=== PATIENT | male | born 1980 | race African-American/Black ===

== ENCOUNTER 2018-02-08 08:52 | Emergency (ER) | payer OTHER ==
[2018-02-08 09:00] VITALS: BP 136/99
--- NOTE | 2018-02-08 09:17 | PHYS DOC ---
Adult General Chief Complaint Chief Complaint: ANIMAL BITE HPI HPI 37-year-old male presents with dog bite. Patient was walking home from a gas station around 2:30 AM when he heard a noise behind him. He turned around and the dog appeared from the bushes and lunged at the patient. He put his hands up to protect himself and the dog bit his right hand at least twice. He was able to push the dog away with his foot and the dog left and went across the street. He did notice that the dog had a collar, but could not see any tags. The patient then went home and peroxide over the wounds and wrapped loosely with a towel. He came in today to have it evaluated. He denies fever or chills. He states that other than biting him, the dog appeared to be acting normally. He has no other injuries or wounds. His tetanus is not up-to-date. Review of Systems Review of Systems Constitutional: Denies fever or chills [] Eyes: Denies change in visual acuity, redness, or eye pain [] HENT: Denies nasal congestion or sore throat [] Respiratory: Denies cough or shortness of breath [] Cardiovascular: No additional information not addressed in HPI [] GI: Denies abdominal pain, nausea, vomiting, bloody stools or diarrhea [] : Denies dysuria or hematuria [] Musculoskeletal: right hand pain [] Integument: puncture wounds on right hand [] Neurologic: Denies headache, focal weakness or sensory changes [] Endocrine: Denies polyuria or polydipsia [] All other systems were reviewed and found to be within normal limits, except as documented in this note. Physical Exam Physical Exam Constitutional: Well developed, well nourished, no acute distress, non-toxic appearance. [] HENT: Normocephalic, atraumatic, bilateral external ears normal, oropharynx moist, no oral exudates, nose normal. [] Eyes: PERRLA, EOMI, conjunctiva normal, no discharge. [] Neck: Normal range of motion, no tenderness, supple, no stridor. [] Cardiovascular:Heart rate regular rhythm, no murmur [] Lungs & Thorax: Bilateral breath sounds clear to auscultation [] Abdomen: Bowel sounds normal, soft, no tenderness, no masses, no pulsatile masses. [] Skin: multiple puncture hazel on right hand. [] Back: No tenderness, no CVA tenderness. [] Extremities: slight swelling and multiple puncture wounds on right hand. [] Neurologic: Alert and oriented X 3, normal motor function, normal sensory function, no focal deficits noted. [] Psychologic: Affect normal, judgement normal, mood normal. [] EKG EKG [] Radiology/Procedures Radiology/Procedures HAND RIGHT 2V (PA, lateral) INDICATION: Right hand pain, dog bite today COMPARISON: None. FINDINGS: No acute fracture or malalignment. The joint spaces are maintained. Bony mineralization is normal for the patient's age. No significant soft tissue abnormality. No radiopaque foreign body. IMPRESSION: No acute fracture or malalignment. No radiopaque foreign body. Electronically signed by: Mandeep Merida MD (02/08/2018 9:28 AM) [facility][] Course & Med Decision Making Course & Med Decision Making Pertinent Labs and Imaging studies reviewed. (See chart for details) The patient's hand x-ray was negative for foreign body or fracture. Soaked the patient's wounds and a water chlorhexidine solution. I discussed rabies prophylaxis with the patient and he has elected not to proceed with that at this time. I will give him a prescription for Augmentin for the next 7 days. If he changes his mind about vaccination, he will return to the ED. He'll also return if his condition worsens. [] Dragon Disclaimer Dragon Disclaimer This electronic medical record was generated, in whole or in part, using a voice recognition dictation system. Departure Departure: Referrals: PCP,UNKNOWN (PCP) Scripts Amoxicillin/Potassium Clav (AUGMENTIN 875-125 TABLET) 1 Each Tablet 1 TAB PO BID, #14 TAB Prov: AMARILIS GAFFNEY DO 02/08/18 AMARILIS GAFFNEY DO February 08, 2018 09:17
--- NOTE | 2018-02-08 09:31 | RAD ---
HAND RIGHT 2V (PA, lateral) INDICATION: Right hand pain, dog bite today COMPARISON: None. FINDINGS: No acute fracture or malalignment. The joint spaces are maintained. Bony mineralization is normal for the patient's age. No significant soft tissue abnormality. No radiopaque foreign body. IMPRESSION: No acute fracture or malalignment. No radiopaque foreign body. Electronically signed by: Mandeep Merida MD (02/08/2018 9:28 AM) [facility]
[2018-02-08] MEDS ORDERED: AMOX1TAB61 PO (09:49)
[2018-02-08] MEDS ORDERED: DIPHTH,PERTUSS(ACELL),TET TOX 0.5 ML DISP.SYRIN. VAX IM ONE (10:00)
== END 2018-02-08 10:20 | disposition home or self-care (01) ==
LOC: ER 08:52
DX: S61.451A Open bite of right hand, initial encounter (principal); W54.0XXA Bitten by dog, initial encounter; Y93.01 Activity, walking, marching and hiking; Y99.8 Other external cause status; Y92.89 Other specified places as the place of occurrence of the external cause
CPT/HCPCS: 73120; 90471; 90715; 99284-25

== ENCOUNTER 2018-05-11 15:23 | Emergency (ER) | payer OTHER ==
[~2018-05-11] VITALS: Ht 177.8 cm; Wt 72.6 kg
[~2018-05-11 15:23] MED LIST: AMOX1TAB61 PO
[2018-05-11 15:51] VITALS: BP 159/101
--- NOTE | 2018-05-11 17:33 | PHYS DOC ---
Past History Past Medical History: Hypertension Past Surgical History: No Surgical History Alcohol Use: Occasionally Drug Use: Marijuana Adult General Chief Complaint Chief Complaint: SKIN PROBLEM HPI HPI 37-year-old male presents with a mass on the posterior right side of his scalp. Patient states that this appeared last week. It "popped" 2 days ago and had clear drainage. It is now scabbed over and the patient is concerned that it could be infected. He wants to know if there is anything he should do about it. He denies any other injuries or concerns. He denies fever or chills. No history of skin infections. Review of Systems Review of Systems Constitutional: Denies fever or chills [] Eyes: Denies change in visual acuity, redness, or eye pain [] HENT: Denies nasal congestion or sore throat [] Respiratory: Denies cough or shortness of breath [] Cardiovascular: No additional information not addressed in HPI [] GI: Denies abdominal pain, nausea, vomiting, bloody stools or diarrhea [] : Denies dysuria or hematuria [] Musculoskeletal: Denies back pain or joint pain [] Integument: skin lesions [] Neurologic: Denies headache, focal weakness or sensory changes [] Endocrine: Denies polyuria or polydipsia [] All other systems were reviewed and found to be within normal limits, except as documented in this note. Allergies Allergies Allergies Coded Allergies Type Severity Reaction Last Updated Verified No Known Drug Allergies 02/08/18 No Physical Exam Physical Exam Constitutional: Well developed, well nourished, no acute distress, non-toxic appearance. [] HENT: Normocephalic, atraumatic, bilateral external ears normal, oropharynx moist, no oral exudates, nose normal. [] Eyes: PERRLA, EOMI, conjunctiva normal, no discharge. [] Neck: Normal range of motion, no tenderness, supple, no stridor. [] Cardiovascular:Heart rate regular rhythm, no murmur [] Lungs & Thorax: Bilateral breath sounds clear to auscultation [] Abdomen: Bowel sounds normal, soft, no tenderness, no masses, no pulsatile masses. [] Skin: 1 cm lesion in the right occipital scalp along the hairline. It is scabbed over. There is no erythema or warmth. There is appears to be a ruptured cyst or some other inflammatory response. It appears to be healing well.[] Back: No tenderness, no CVA tenderness. [] Extremities: No tenderness, no cyanosis, no clubbing, ROM intact, no edema. [] Neurologic: Alert and oriented X 3, normal motor function, normal sensory function, no focal deficits noted. [] Psychologic: Affect normal, judgement normal, mood normal. [] Current Patient Data Vital Signs Vital Signs Date Time Temp Pulse Resp B/P (MAP) Pulse Ox O2 Delivery O2 Flow Rate FiO2 05/11/18 15:51 97.5 71 16 99 EKG EKG [] Radiology/Procedures Radiology/Procedures [] Course & Med Decision Making Course & Med Decision Making Pertinent Labs and Imaging studies reviewed. (See chart for details) The patient's mass appears to have been a local inflammatory reaction to a cyst , an insect bite or an ingrown hair. It seems to have spontaneously drained and is scabbed over. I do not see any signs of infection or other concerning signs. I explained to the patient that it just needs to heal on its own. If it returns he should seek further evaluation by his PCP. He is stable for discharge at this time. [] Dragon Disclaimer Dragon Disclaimer This electronic medical record was generated, in whole or in part, using a voice recognition dictation system. Departure Departure: Impression: Primary Impression: Scalp cyst Disposition: HOME, SELF-CARE Condition: STABLE Additional Instructions: The spot on your scalp was likely an infected hair follicle. It appears your body has taken care of the situation and it just needs to heal. You can bathe normally and have no restrictions for activities. Try not to take off the scab as this could cause infection. If the bump returns, you may need antibiotics or to have it cut out by a ep specialist or surgeon. AMARILIS GAFFNEY DO May 11, 2018 17:33
== END 2018-05-11 16:15 | disposition home or self-care (01) ==
LOC: ER 15:23
DX: L98.8 Other specified disorders of the skin and subcutaneous tissue (principal); I10 Essential (primary) hypertension
CPT/HCPCS: 99281

== ENCOUNTER 2018-05-30 08:11 | Emergency (ER) | payer OTHER ==
[~2018-05-30] VITALS: Ht 172.7 cm; Wt 61.2 kg
[2018-05-30 08:20] VITALS: BP 167/99
[2018-05-30] MEDS ORDERED: SULF1TAB24 PO (08:34)
[2018-05-30] MEDS ORDERED: NAPR-683 PO (08:34)
--- NOTE | 2018-05-30 08:34 | PHYS DOC ---
Past History Past Medical History: Hypertension Past Surgical History: No Surgical History Alcohol Use: Occasionally Drug Use: Marijuana Adult General Chief Complaint Chief Complaint: ABSCESS HPI HPI Patient is a 37 year old male who presents with complaining of painful area in his right groin. Patient states she had a painful area in his right groin and scrotal area for the last 2-3 days and since yesterday had drainage of pus with decrease of pain. Patient denies fever and chills, penile discharge, history of abscess. Review of Systems Review of Systems Constitutional: Denies fever or chills [] Eyes: Denies change in visual acuity, redness, or eye pain [] HENT: Denies nasal congestion or sore throat [] Respiratory: Denies cough or shortness of breath [] Cardiovascular: No additional information not addressed in HPI [] GI: Denies abdominal pain, nausea, vomiting, bloody stools or diarrhea [] : Denies dysuria or hematuria [] Musculoskeletal: Denies back pain or joint pain [] Integument: Denies rash, reports abscess Neurologic: Denies headache, focal weakness or sensory changes [] Endocrine: Denies polyuria or polydipsia [] All other systems were reviewed and found to be within normal limits, except as documented in this note. Allergies Allergies Allergies Coded Allergies Type Severity Reaction Last Updated Verified No Known Drug Allergies 02/08/18 No Physical Exam Physical Exam Constitutional: Well developed, well nourished, no acute distress, non-toxic appearance. [] HENT: Normocephalic. Eyes: PERRLA, EOMI, conjunctiva normal, no discharge. [] Neck: Normal range of motion, no tenderness, supple, no stridor. [] Cardiovascular:Heart rate regular rhythm, no murmur [] Lungs & Thorax: Bilateral breath sounds clear to auscultation [] Abdomen: Bowel sounds normal, soft, no tenderness, no masses, no pulsatile masses, 2 x1 cm area of abscess in right scrotal wall with drainage of pus without inguinal lymphadenopathy Back: No tenderness, no CVA tenderness. [] Extremities: No tenderness, no cyanosis, no clubbing, ROM intact, no edema. [] Neurologic: Alert and oriented X 3, normal motor function, normal sensory function, no focal deficits noted. [] Psychologic: Affect normal, judgement normal, mood normal. [] EKG EKG [] Radiology/Procedures Radiology/Procedures [] Course & Med Decision Making Course & Med Decision Making Evaluation of patient in ER showed 37-year-old male patient with complaining of abscess in right scrotal wall that already is opened and draining. Patient informed to squeeze the abscess and keep the wound clean and dry. Prescription for Bactrim and Naprosyn was given. Dragon Disclaimer Dragon Disclaimer This electronic medical record was generated, in whole or in part, using a voice recognition dictation system. Departure Departure: Impression: Primary Impression: Scrotal wall abscess Additional Impressions: Tobacco abuse Tobacco abuse counseling Disposition: HOME, SELF-CARE (At 0832) Condition: STABLE Referrals: PCP,NO (PCP) Patient Instructions: Abscess, [id number], Community-Associated MRSA, Smoking Cessation, Tips For Success Additional Instructions: Keep wound clean and dry Follow-up with your primary care physician in 3-5 days Return to ER if not getting better Scripts Naproxen (NAPROSYN) 500 Mg Tablet 1 TAB PO BID, #20 TAB Prov: MOOSE FRYE MD 05/30/18 Sulfamethoxazole/Trimethoprim (BACTRIM DS TABLET) 1 Each Tablet 1 TAB PO BID, #14 TAB Prov: MOOSE FRYE MD 05/30/18 Problem Qualifiers MOOSE FRYE MD May 30, 2018 08:34
== END 2018-05-30 08:49 | disposition home or self-care (01) ==
LOC: ER 08:11
DX: N49.2 Inflammatory disorders of scrotum (principal); I10 Essential (primary) hypertension; Z72.0 Tobacco use; Z71.6 Tobacco abuse counseling
CPT/HCPCS: 99283

== ENCOUNTER 2021-11-09 14:33 | Emergency (ER) | payer BC ==
[~2021-11-09] VITALS: Ht 172.7 cm; Wt 63.6 kg
[~2021-11-09 14:33] MED LIST changes: +NAPR-683 PO; +SULF1TAB24 PO
[2021-11-09 14:37] VITALS: BP 138/87
--- NOTE | 2021-11-09 16:24 | PHYS DOC ---
Past History Past Medical History: Hypertension (URIEL SALAS APRN) Past Surgical History: Other (URIEL SALAS APRN) Alcohol Use: Occasionally Drug Use: Marijuana (URIEL SALAS APRN) General Adult EDM: Chief Complaint: LACERATION/AVULSION HPI: HPI: Patient is a 41-year-old male presents with finger laceration. Patient states he cut it on a hook knife. Bleeding is controlled. Patient has full range of motion. Sensation intact. Denies pain at this time. No medical history. (URIEL SALAS APRN) Review of Systems: Review of Systems: Constitutional: Denies fever or chills Eyes: Denies change in visual acuity HENT: Denies nasal congestion or sore throat Respiratory: Denies cough or shortness of breath Cardiovascular: Denies chest pain or edema GI: Denies abdominal pain, nausea, vomiting, bloody stools or diarrhea : Denies dysuria Musculoskeletal: Denies back pain or joint pain Integument: Denies rash Neurologic: Denies headache, focal weakness or sensory changes Endocrine: Denies polyuria or polydipsia Lymphatic: Denies swollen glands Psychiatric: Denies depression or anxiety (URIEL SALAS APRN) Allergies: Allergies: Allergies Coded Allergies Type Severity Reaction Last Updated Verified No Known Drug Allergies 02/08/18 No (URIEL SALAS APRN) Physical Exam: PE: Constitutional: Well developed, well nourished, no acute distress, non-toxic appearance. [] HENT: Normocephalic, atraumatic, bilateral external ears normal, oropharynx moist, no oral exudates, nose normal. [] Eyes: PERRLA, EOMI, conjunctiva normal, no discharge. [] Neck: Normal range of motion, no tenderness, supple, no stridor. [] Cardiovascular:Heart rate regular rhythm, no murmur [] Lungs & Thorax: Bilateral breath sounds clear to auscultation [] Abdomen: Bowel sounds normal, soft, no tenderness, no masses, no pulsatile masses. [] Skin: Laceration to left index finger. Tenderness. Bleeding controlled. Back: No tenderness, no CVA tenderness. [] Extremities: No tenderness, no cyanosis, no clubbing, ROM intact, no edema. [] Neurologic: Alert and oriented X 3, normal motor function, normal sensory function, no focal deficits noted. [] Psychologic: Affect normal, judgement normal, mood normal. [] (URIEL SALAS APRN) Current Patient Data: Vital Signs: Vital Signs Date Time Temp Pulse Resp B/P (MAP) Pulse Ox O2 Delivery O2 Flow Rate FiO2 11/09/21 14:37 98.3 97 16 138/87 (104) 100 Room Air (URIEL SALAS APRN) EKG: EKG: [] (URIEL SALAS APRN) Radiology/Procedures: Radiology/Procedures: [] (URIEL SALAS APRN) Heart Score: C/O Chest Pain: No Risk Factors: Risk Factors: DM, Current or recent (<one month) smoker, HTN, HLP, family history of CAD, obesity. Risk Scores: Score 0 - 3: 2.5% MACE over next 6 weeks - Discharge Home Score 4 - 6: 20.3% MACE over next 6 weeks - Admit for Clinical Observation Score 7 - 10: 72.7% MACE over next 6 weeks - Early Invasive Strategies (URIEL SALAS APRN) Course & Med Decision Making: Course & Med Decision Making Pertinent Labs and Imaging studies reviewed. (See chart for details) [] 41-year-old male presents with a left, finger laceration after cutting it on a hook knife. Bleeding is controlled. Range of motion and sensation are both intact. Denying pain at this time. Wound was irrigated. Glue and Steri-Strips applied. Wrapped finger with gauze. Vies patient to keep area clean and dry to avoid infection. Patient's tetanus is up-to-date. Ibuprofen and Tylenol at home for discomfort. Discussed return precautions. (URIEL SALAS APRN) Dragon Disclaimer: Dragon Disclaimer: This electronic medical record was generated, in whole or in part, using a voice recognition dictation system. (URIEL SALAS APRN) Attending Co-Sign The patient was seen and interviewed as well as examined at the bedside. The chart was reviewed. The case was discussed. Agree with the plan of care. (AMARILIS GAFFNEY DO) Departure Departure: Impression: Primary Impression: Laceration Disposition: HOME / SELF CARE / HOMELESS Condition: STABLE Referrals: PCP,NO (PCP) Patient Instructions: Laceration Care, Adult, [id number] Additional Instructions: You were seen in the emergency room for a laceration to your finger. Your wound was irrigated. You stated that you are tetanus was up-to-date. Wound was wrapped after glue and Steri-Strips applied. Please make sure that you keep the wound clean and dry and covered. To avoid infection return to emergency room if you have worsening symptoms or concerns. EMERGENCY DEPARTMENT GENERAL DISCHARGE INSTRUCTIONS Thank you for coming to [facility] (ED) today and trusting us with you care. We trust that you had a positivie experience in our Emergency Department. If you wish to speak to the department management, you may call the director at [phone]. YOUR FOLLOW UP INSTRUCTIONS ARE FOLLOWS: 1. Do you have a private Doctor? If you do not have a private doctor, please ask for a resource list of physicians or clinics that may be able to assist you with follow up care. 2. The Emergency Physician has interpreted your x-rays. The X-Ray specialist will also review them. If there is a change in the findings, you will be notified in 48 hours when at all possible. 3. A lab test or culture has been done, your results will be reviewed and you will be notified if you need a change in treatment. ADDITIONAL INSTRUCTIONS AND INFORMATION: 1. Your care today has been supervised by a physician who is specially trained in emergency care. Many problems require more than one evaluation for a complete diagnosis and treatment. We recommend that you schedule your follow up appointment as recommended to ensure complete treatment of you illness or injury. If you are unable to obtain follow up care and continue to have a problem, or if your condition worsens, we recommend that you return to the ED. 2. We are not able to safely determine your condition over the phone nor are we able to give sound medical advice over the phone. For these safety reasons, if you call for medical advice we will ask you to come to the ED for further evaluation. 3. If you have any questions regarding these discharge instructions please call the ED at [phone]. SAFETY INFORMATION: In the interest of safety, wellness, and injury prevention; we encourage you to wear your sealbelt, if you smoke; quite smoking, and we encourage family to use a protective helmet for bicycling and other sporting events that present an increased risk for head injury. IF YOUR SYMPTOMS WORSEN OR NEW SYMPTOMS DEVELOP, OR YOU HAVE CONCERNS ABOUT YOUR CONDITION; OR IF YOUR CONDITION WORSENS WHILE YOU ARE WAITING FOR YOUR FOLLOW UP APPOINTMENT; EITHER CONTACT YOUR PRIMARY CARE DOCTOR, THE PHYSICIAN WHOSE NAME AND NUMBER YOU WERE GIVEN, OR RETURN TO THE ED IMMEDIATELY. URIEL SALAS APRN Nov 09, 2021 16:24 AMARILIS GAFFNEY DO Nov 10, 2021 19:51
[2021-11-09] MEDS ORDERED: BACITRACIN ZINC TOPICAL OINT PACKET. TP ONE (17:15)
== END 2021-11-09 17:20 | disposition home or self-care (01) ==
LOC: ER 14:33
DX: S61.211A Laceration without foreign body of left index finger without damage to nail, initial encounter (principal); I10 Essential (primary) hypertension; W26.0XXA Contact with knife, initial encounter; Y93.89 Activity, other specified; Y92.89 Other specified places as the place of occurrence of the external cause; Y99.8 Other external cause status
CPT/HCPCS: 99282